=== PATIENT | male | born 1985 | race Caucasian/White ===

== ENCOUNTER 2016-05-09 16:10 | Emergency (ER) | payer SELFPAY ==
[~2016-05-09 16:10] MED LIST: MOTRIN
--- NOTE | 2016-05-09 18:03 | NUR ---
PATIENT CALLED FROM LOBBY FOR TRIAGE NO ANSWER PATIENT IS LWBS.
== END 2016-05-09 17:13 | disposition left against medical advice (07) ==
LOC: MED 16:10
DX: K08.89 Other specified disorders of teeth and supporting structures (principal); Z53.21 Procedure and treatment not carried out due to patient leaving prior to being seen by health care provider

== ENCOUNTER 2016-08-14 17:01 | Emergency (ER) | payer MEDICAID ==
[~2016-08-14] VITALS: Ht 170.2 cm; Wt 100.2 kg
[2016-08-14 17:13] VITALS: BP 145/85
--- NOTE | 2016-08-14 17:16 | NUR ---
Dr.Nelson allen pt in triage---
--- NOTE | 2016-08-14 17:19 | NUR ---
PATIENT PRESENTS TO ED WITH right lower molar pain . PT STATES it has been hurting since yesterday . DENIES N/V/D; SKIN IS PINK/WARM/DRY; AAOX4 WITH EVEN AND STEADY GAIT; LUNGS CLEAR BL; HR EVEN AND REGULAR; PT DENIES ANY FEVER, CP, SOB, OR COUGH AT THIS TIME; PATIENT STATES PAIN OF 7/10 AT THIS TIME; VSS; PATIENT POSITIONED FOR COMFORT; HOB ELEVATED; BEDRAILS UP X2; BED DOWN. ER MD MADE AWARE OF PT STATUS.
[2016-08-14 17:30] VITALS: BP 145/85
--- NOTE | 2016-08-14 17:31 | NUR ---
Patient discharged with v/s stable. Written and verbal after care instructions given and explained. Patient alert, oriented and verbalized understanding of instructions. Ambulatory with steady gait. All questions addressed prior to discharge. ID band removed. Patient advised to follow up with PMD. Rx of tylenol w codeine/beepen vk given. Patient educated on indication of medication including possible reaction and side effects. Opportunity to ask questions provided and answered.
== END 2016-08-14 17:31 | disposition home or self-care (01) ==
LOC: MED 17:01
DX: K08.89 Other specified disorders of teeth and supporting structures (principal)
CPT/HCPCS: 99283

== ENCOUNTER 2018-01-17 09:20 | Emergency (ER) | payer SELFPAY ==
[~2018-01-17] VITALS: Ht 165.1 cm; Wt 65.8 kg
[2018-01-17 09:31] VITALS: BP 133/77
[2018-01-17] MEDS ORDERED: BACITRACIN OINT 500 UNITS/GM PKT TP ONE (10:17)
[2018-01-17 10:32] VITALS: BP 133/77
== END 2018-01-17 10:32 | disposition home or self-care (01) ==
LOC: MED 09:20
DX: L30.9 Dermatitis, unspecified (principal); F17.200 Nicotine dependence, unspecified, uncomplicated; Z79.899 Other long term (current) drug therapy; Z59.0 Homelessness
CPT/HCPCS: 99283

== ENCOUNTER 2019-09-27 01:05 | Emergency (ER) | payer OTHER ==
[~2019-09-27] VITALS: Ht 165.1 cm; Wt 77.1 kg
[2019-09-27 01:27] VITALS: BP 148/102
--- NOTE | 2019-09-27 01:27 | NUR ---
PREBOOK. IN CUSTODY FOR SUBSTANCE USE. A&O X4. STEADY GAIT. NO DISTRESS NOTED. DENIES ANY ALLERGIES. DENIES ANY PMH.
[2019-09-27] MEDS: ONDANSETRON 4 MG ODT PO ONE (01:35)
--- NOTE | 2019-09-27 01:37 | NUR ---
EKG BEING PERFORMED BY BENITO CELAYA.
--- NOTE | 2019-09-27 01:55 | NUR ---
MARIAN PT BP: 158/103. NEW ORDERS FROM SALLIE CARDOZA.
[2019-09-27] MEDS: hydrALAZINE 20 MG/ML VIAL IM ONE (01:57)
[2019-09-27 02:19] VITALS: BP 164/96
--- NOTE | 2019-09-27 02:19 | NUR ---
PATIENT [employer] [employer]. PATIENT EXAMINED BY DR. CARDOZA. PATIENT MEDICALLY CLEARED AND RELEASED IN CUSTODY IN STABLE CONDITION. ORIGINAL PRE-BOOK FORM GIVEN TO OFFICER Timmy POWELL.
== END 2019-09-27 02:19 ==
LOC: MED 01:05
DX: R11.0 Nausea (principal); I10 Essential (primary) hypertension; F17.210 Nicotine dependence, cigarettes, uncomplicated; Z02.89 Encounter for other administrative examinations; Z79.899 Other long term (current) drug therapy
CPT/HCPCS: 93005; 96372; 99283; J0360; Q0162